=== PATIENT | male | born 1990 | race African-American/Black ===

== ENCOUNTER 2023-11-19 16:29 | Inpatient (IN) | payer OTHER ==
[2023-11-19 18:58] VITALS: BMI 25.1
[2023-11-19] MEDS ORDERED: POLYETHYLENE GLYCOL (HEALTHYLAX) 3350 17 GM PACKET PO PRN (20:41)
[2023-11-19] MEDS ORDERED: ONDANSETRON *ODT* 4 MG TABLET SL PRN (20:41)
[2023-11-19] MEDS ORDERED: NALOXONE HCL (KLOXXADO) 8 MG SPRAY NS PRN (20:41)
[2023-11-19] MEDS ORDERED: MAG HYDROX/AL HYDROX/SIMETH 30 ML UNIT-DOSE CUP PO PRN (20:41)
[2023-11-19] MEDS ORDERED: LOPERAMIDE HCL 2 MG CAPSULE PO PRN (20:41)
[2023-11-19] MEDS ORDERED: DICYCLOMINE HCL 10 MG CAPSULE PO PRN (20:41)
[2023-11-19] MEDS ORDERED: hydrOXYzine PAMOATE 25 MG CAPSULE (FP) PO PRN (20:41)
[2023-11-19] MEDS ORDERED: MAGNESIUM HYDROX 2400MG/30ML ORAL SUSPENSION 30 ML CUP PO PRN (20:41)
[2023-11-19] MEDS ORDERED: guaiFENesin 600 MG TABLET.ER (FP) PO PRN (20:41)
[2023-11-19] MEDS ORDERED: NALOXONE HCL 0.4 MG/ML VIAL IM PRN (20:41)
[2023-11-19] MEDS ORDERED: ACETAMINOPHEN 325 MG TABLET (FP) PO PRN (20:41)
[2023-11-19] MEDS ORDERED: NICOTINE POLACRILEX 2 MG LOZENGE BC PRN (20:41)
[2023-11-19] MEDS ORDERED: BENZONATATE 200 MG CAPSULE PO PRN (20:41)
[2023-11-19] MEDS ORDERED: BISMUTH SUBSALICYLATE 524 MG/30 ML PO PRN (20:41)
[2023-11-19] MEDS ORDERED: BENZOCAINE/MENTHOL (CHLORASEPTIC ) LOZENGE MM PRN (20:41)
[2023-11-19] MEDS: IBUPROFEN 600 MG TABLET (FP) PO PRN (22:18)
[2023-11-19] MEDS: METHOCARBAMOL 500 MG TABLET PO PRN (22:19)
[2023-11-19] MEDS: MELATONIN 5 MG TABLETS PO SCH (22:19)
[2023-11-19] MEDS: THIAMINE HCL 100 MG TABLET (FP) PO SCH (22:19)
[2023-11-19] MEDS: LIDOCAINE PATCH REMOVAL MC SCH (22:20)
[2023-11-20] MEDS ORDERED: ALBUTEROL SO4 0.083% IH SOL 2.5 MG/3 ML VIAL.NEB. NEB PRN (01:00)
[2023-11-20] MEDS ORDERED: chlordiazePOXIDE HCL 25 MG CAPSULE PO PRN (07:08)
[2023-11-20] MEDS: PRENATAL VITAMINS W/ FOLIC ACID TABLET (FP) PO SCH (10:24)
[2023-11-20] MEDS: LIDOCAINE 5% TOPICAL PATCH TP SCH (10:24)
[2023-11-20] MEDS: NICOTINE 14 MG/24 HOURS TOPICAL PATCH TD SCH (10:25)
[2023-11-20] MEDS: chlordiazePOXIDE HCL 25 MG CAPSULE PO SCH (10:25)
[2023-11-20 11:48] LABS: CHLORIDE 104 mmol/L (98-107); SODIUM 142 mmol/L (136-145)
[2023-11-20 11:53] LABS: ALBUMIN 3.6 g/dl (3.4-5.0); ANION GAP 6 mmol/L (4-13); BLOOD UREA NITROGEN 8.4 mg/dL (7-18); CALCIUM 9.3 mg/dL (8.5-10.1); CO2 33 mmol/L (21-32); GLUCOSE,RANDOM 85 mg/dL (74-106)
[2023-11-20 11:55] LABS: SGPT/ALT 41 U/L (13-61)
[2023-11-20 11:56] LABS: SGOT/AST 32 U/L (15-37)
[2023-11-20 11:57] LABS: BILIRUBIN,TOTAL 1.3 mg/dL (0.2-1)
[2023-11-20 11:58] LABS: ALK PHOS 92 U/L (45-117)
[2023-11-20 12:00] LABS: TOT PROT 6.9 g/dl (6.4-8.2)
[2023-11-20 12:03] LABS: HEMATOCRIT 43.2 % (35.4-49); HEMOGLOBIN 14.9 GM/dL (11.7-16.9); MCH 31.8 pg (25.7-33.7); MCHC 34.5 g/dl (32.0-35.9); MEAN CELL VOLUME 92.3 fl (80-96); MEAN PLT VOLUME 8.8 fl (7.5-11.1); PLATELET COUNT 156 10^3/uL (134-434); RBC 4.68 M/mm3 (4.00-5.60)
[2023-11-20 16:07] LABS: PH,URINE 7.5 (5.0-8.0); URINE APPEARANCE CLEAR; URINE BILIRUBIN NEGATIVE (NEGATIVE); URINE COLOR YELLOW; URINE GLUCOSE (UA) NEGATIVE (NEGATIVE); URINE KETONE TRACE (NEGATIVE); URINE LEUK ESTERASE NEGATIVE (NEGATIVE); URINE NITRITE NEGATIVE (NEGATIVE); URINE PROTEIN NEGATIVE (NEGATIVE); URINE UROBILINOGEN 0.2 mg/dL (0.2-1.0)
[2023-11-20] MEDS ORDERED: ALBUTEROL SO4 HFA INHALER IH ONE (17:19)
[2023-11-20] MEDS ORDERED: ALBUTEROL SO4 HFA INHALER IH PRN (18:18)
[2023-11-20] MEDS: ALBUTEROL SO4 HFA INHALER IH PRN (18:27)
[2023-11-20] MEDS: SUVOREXANT 10 MG TABLET PO PRN (22:25)
[2023-11-20] MEDS: IBUPROFEN 400 MG TABLET (FP) PO PRN (22:28)
[2023-11-21] MEDS: diazePAM 5 MG TABLET PO SCH (11:16)
[2023-11-21] MEDS: SUVOREXANT 10 MG TABLET PO PRN (22:17)
[2023-11-22] MEDS ORDERED: chlordiazePOXIDE HCL 10 MG CAPSULE PO SCH (05:00)
[2023-11-22] MEDS: diazePAM 5 MG TABLET PO SCH (05:33)
[2023-11-22 06:28] VITALS: RESP 17
[2023-11-22 09:29] VITALS: TEMP 98
[2023-11-22] MEDS: diazePAM 5 MG TABLET PO PRN (10:38)
[2023-11-22 13:15] VITALS: BP 110/69; PULSE 81
[2023-11-23] MEDS ORDERED: chlordiazePOXIDE HCL 10 MG CAPSULE PO PRN
[2023-11-23] MEDS ORDERED: chlordiazePOXIDE HCL 10 MG CAPSULE PO SCH (05:00)
[2023-11-23] MEDS ORDERED: diazePAM 5 MG TABLET PO SCH (06:00)
[2023-11-24] MEDS ORDERED: chlordiazePOXIDE HCL 10 MG CAPSULE PO ONE (05:00)
[2023-11-24] MEDS ORDERED: diazePAM 5 MG TABLET PO ONE (06:00)
== END 2023-11-22 15:20 | disposition left against medical advice (07) | DRG 770 ==
LOC: YASAS 16:29 → Y3N 21:30
PROVIDERS: ADMIT Allergy & Immunology; ATTEND Surgery
PROC: HZ2ZZZZ Detoxification Services for Substance Abuse Treatment (ICD-10-PCS; principal; 2023-11-19)
DX: F10.230 Alcohol dependence with withdrawal, uncomplicated (principal); F17.210 Nicotine dependence, cigarettes, uncomplicated; F19.282 Other psychoactive substance dependence with psychoactive substance-induced sleep disorder; F43.10 Post-traumatic stress disorder, unspecified; Z28.310 Unvaccinated for COVID-19; Z28.9 Immunization not carried out for unspecified reason; Z59.01 Sheltered homelessness; Z87.828 Personal history of other (healed) physical injury and trauma
CPT/HCPCS: 36415; 80053; 80305; 80307; 81003; 85027; 86780; 87635; 93005; 93010

== ENCOUNTER 2024-11-28 09:00 | Inpatient (IN) | payer OTHER ==
[2024-11-28 09:29] VITALS: BMI 27.8
[2024-11-28] MEDS ORDERED: LOPERAMIDE HCL 2 MG CAPSULE PO PRN (09:57)
[2024-11-28] MEDS ORDERED: BENZONATATE 200 MG CAPSULE PO PRN (09:57)
[2024-11-28] MEDS ORDERED: MAG HYDROX/AL HYDROX/SIMETH 30 ML UNIT-DOSE CUP PO PRN (09:57)
[2024-11-28] MEDS ORDERED: BENZOCAINE/MENTHOL (CHLORASEPTIC ) LOZENGE MM PRN (09:57)
[2024-11-28] MEDS ORDERED: MAGNESIUM HYDROX 2400MG/30ML ORAL SUSPENSION 30 ML CUP PO PRN (09:57)
[2024-11-28] MEDS ORDERED: IBUPROFEN 400 MG TABLET (FP) PO PRN (09:57)
[2024-11-28] MEDS ORDERED: IBUPROFEN 600 MG TABLET (FP) PO PRN (09:57)
[2024-11-28] MEDS ORDERED: ACETAMINOPHEN 325 MG TABLET (FP) PO PRN (09:57)
[2024-11-28] MEDS ORDERED: guaiFENesin 600 MG TABLET.ER (FP) PO PRN (09:57)
[2024-11-28] MEDS ORDERED: NICOTINE POLACRILEX 2 MG GUM BUC PRN (09:57)
[2024-11-28] MEDS ORDERED: NALOXONE (NARCAN) HCL 4 MG/0.1 ML SPRAY NS PRN (09:57)
[2024-11-28] MEDS ORDERED: POLYETHYLENE GLYCOL (HEALTHYLAX) 3350 17 GM PACKET PO PRN (09:57)
[2024-11-28] MEDS ORDERED: NICOTINE POLACRILEX 2 MG LOZENGE BC PRN (09:57)
[2024-11-28] MEDS ORDERED: BISMUTH SUBSALICYLATE 524 MG/30 ML PO PRN (09:57)
[2024-11-28] MEDS ORDERED: ONDANSETRON *ODT* 4 MG TABLET SL PRN (09:57)
[2024-11-28] MEDS ORDERED: DICYCLOMINE HCL 10 MG CAPSULE PO PRN (09:57)
[2024-11-28] MEDS: PRENATAL VITAMINS W/ FOLIC ACID TABLET (FP) PO SCH (12:08)
[2024-11-28] MEDS ORDERED: ALBUTEROL SO4 HFA INHALER IH PRN (16:24)
[2024-11-28] MEDS: hydrOXYzine PAMOATE 25 MG CAPSULE (FP) PO PRN (22:13)
[2024-11-28] MEDS: THIAMINE 100 MG TABLET PO SCH (22:13)
[2024-11-28] MEDS: MELATONIN 5 MG TABLETS PO SCH (22:13)
[2024-11-28] MEDS: METHOCARBAMOL 500 MG TABLET PO PRN (22:13)
[2024-11-29] MEDS ORDERED: chlordiazePOXIDE HCL 25 MG CAPSULE PO PRN (08:45)
[2024-11-29 08:57] VITALS: RESP 18
[2024-11-29] MEDS: predniSONE 10 MG TABLET (UD) PO SCH (10:11)
[2024-11-29] MEDS: chlordiazePOXIDE HCL 25 MG CAPSULE PO SCH (10:12)
[2024-11-29 12:27] LABS: HEMATOCRIT 44.5 % (35.4-49); HEMOGLOBIN 14.8 GM/dL (11.7-16.9); MCH 28.4 pg (25.7-33.7); MCHC 33.3 g/dl (32.0-35.9); MEAN CELL VOLUME 85.2 fl (80-96); MEAN PLT VOLUME 8.7 fl (7.5-11.1); PLATELET COUNT 200 10^3/uL (134-434); RBC 5.22 M/mm3 (4.00-5.60); RDW 14.3 % (11.9-15.9); WHITE BLOOD COUNT 5.7 K/mm3 (4.0-10.0)
[2024-11-29 12:28] LABS: POTASSIUM 3.5 mmol/L (3.5-5.1)
[2024-11-29 12:33] LABS: ALBUMIN 3.9 g/dl (3.4-5.0)
[2024-11-29 12:35] LABS: BLOOD UREA NITROGEN 8.2 mg/dL (7-18); CALCIUM 9.3 mg/dL (8.5-10.1)
[2024-11-29 12:38] LABS: BILIRUBIN,TOTAL 1.3 mg/dL (0.2-1); TOT PROT 7.2 g/dl (6.4-8.2)
[2024-11-29 13:26] VITALS: BP 143/80; PULSE 87; TEMP 96.8
[2024-11-29] MEDS ORDERED: SUVOREXANT 10 MG TABLET PO PRN (22:00)
[2024-11-30] MEDS ORDERED: NALTREXONE HCL 50 MG TABLET PO ONE (10:00)
[2024-12-01] MEDS ORDERED: chlordiazePOXIDE HCL 25 MG CAPSULE PO SCH (05:00)
[2024-12-02] MEDS ORDERED: chlordiazePOXIDE HCL 10 MG CAPSULE PO PRN
[2024-12-02] MEDS ORDERED: chlordiazePOXIDE HCL 10 MG CAPSULE PO SCH (05:00)
[2024-12-03] MEDS ORDERED: chlordiazePOXIDE HCL 10 MG CAPSULE PO SCH (05:00)
[2024-12-04] MEDS ORDERED: chlordiazePOXIDE HCL 10 MG CAPSULE PO ONE (05:00)
== END 2024-11-29 15:30 | disposition other institution (70) | DRG 775 ==
LOC: YASAS 09:00 → Y6N 10:21
PROVIDERS: ADMIT Allergy & Immunology; ATTEND Allergy & Immunology
PROC: HZ2ZZZZ Detoxification Services for Substance Abuse Treatment (ICD-10-PCS; principal; 2024-11-28)
DX: F10.230 Alcohol dependence with withdrawal, uncomplicated (principal); F12.20 Cannabis dependence, uncomplicated; F17.210 Nicotine dependence, cigarettes, uncomplicated; F43.10 Post-traumatic stress disorder, unspecified; J45.909 Unspecified asthma, uncomplicated; Z59.01 Sheltered homelessness
CPT/HCPCS: 36415; 80053; 80305; 80307; 85027; 86780; 93005; 93010